=== PATIENT | male | born 1985 | race Caucasian/White ===

== ENCOUNTER 2021-01-06 15:21 | Emergency (ER) | payer BC ==
[~2021-01-06] VITALS: Ht 172.7 cm; Wt 83.9 kg
[2021-01-06 15:35] VITALS: BP_SYST 152
[2021-01-06 18:15] VITALS: BP_SYST 115
== END 2021-01-06 18:14 | disposition home or self-care (01) ==
LOC: SED 15:21
DX: G89.29 Other chronic pain (principal); M54.5 Low back pain
CPT/HCPCS: 72100-TC; 99283